=== PATIENT | male | born 1970 | race Caucasian/White ===

== ENCOUNTER 2022-03-26 08:58 | Emergency (ER) | payer OTHER ==
[2022-03-26 11:21] VITALS: BP 167/96
== END 2022-03-26 11:24 | disposition home or self-care (01) | DRG 179 ==
LOC: ED 08:58
DX: U07.1 COVID-19 (principal)

== ENCOUNTER 2022-11-10 19:45 | Emergency (ER) | payer OTHER ==
[~2022-11-10] VITALS: Ht 182.9 cm; Wt 93.0 kg
[2022-11-10 19:54] VITALS: BP 136/89
[2022-11-10] MEDS ORDERED: STERAPRED DS10 MG PO (20:21)
[2022-11-10] MEDS ORDERED: VISTARIL25 MG PO (20:21)
[2022-11-10 20:25] VITALS: BP 136/79
== END 2022-11-10 21:16 | disposition home or self-care (01) ==
LOC: ED 19:45
DX: L25.9 Unspecified contact dermatitis, unspecified cause (principal)

== ENCOUNTER 2022-11-13 12:35 | Emergency (ER) | payer OTHER ==
[~2022-11-13] VITALS: Ht 182.9 cm; Wt 93.0 kg
[~2022-11-13 12:35] MED LIST: STERAPRED DS10 MG PO; VISTARIL25 MG PO
[2022-11-13 12:51] VITALS: BP 155/105
[2022-11-13 13:00] VITALS: BP 136/92
[2022-11-13 13:15] VITALS: BP 139/95
[2022-11-13] MEDS ORDERED: PERMETHRIN5 % EX (13:27)
[2022-11-13 13:33] VITALS: BP 139/95
== END 2022-11-13 13:45 | disposition home or self-care (01) | DRG 607 ==
LOC: ED 12:35
DX: B86 Scabies (principal)

== ENCOUNTER 2022-12-27 04:44 | Emergency (ER) | payer OTHER ==
[~2022-12-27] VITALS: Ht 180.3 cm; Wt 97.5 kg
[~2022-12-27 04:44] MED LIST changes: +PERMETHRIN5 % EX
[2022-12-27 04:54] VITALS: BP 133/81
[2022-12-27 05:00] VITALS: BP 146/90
[2022-12-27 05:16] VITALS: BP 137/88
[2022-12-27 05:45] VITALS: BP 139/83
[2022-12-27] MEDS ORDERED: MEDDOSEPAK PO (06:53)
[2022-12-27] MEDS ORDERED: [UNRECOGNIZED DRUG - OTHER] PO (06:53)
[2022-12-27] MEDS ORDERED: VENTOLIN HFA108 MCG IN (06:54)
[2022-12-27 07:10] VITALS: BP 139/83
[2022-12-27] MEDS ORDERED: ROBITUSSIN AC10 ML PO (14:23)
== END 2022-12-27 07:13 | disposition home or self-care (01) | DRG 204 ==
LOC: ED 04:44
DX: R05.9 Cough, unspecified (principal); F17.200 Nicotine dependence, unspecified, uncomplicated

== ENCOUNTER 2023-04-26 17:25 | Emergency (ER) | payer OTHER ==
[~2023-04-26] VITALS: Ht 180.3 cm; Wt 100.0 kg
[~2023-04-26 17:25] MED LIST changes: +MEDDOSEPAK PO; +ROBITUSSIN AC10 ML PO; +VENTOLIN HFA108 MCG IN; +[UNRECOGNIZED DRUG - OTHER] PO
[2023-04-26 17:46] VITALS: BP 141/84
[2023-04-26] MEDS ORDERED: PERMETHRIN5 % EX (17:46)
== END 2023-04-26 18:17 | disposition home or self-care (01) | DRG 607 ==
LOC: ED 17:25
DX: B86 Scabies (principal)